=== PATIENT | female | born 1995 ===

== ENCOUNTER 2024-06-03 17:59 | Emergency (ER) | payer BC, SELFPAY ==
[2024-06-03 18:14] VITALS: BP 123/92
--- NOTE | 2024-06-03 18:18 | ED.PDOC.TRB ---
ED Provider Triage
-
Patient seen by provider in Triage?: Seen in Triage
A medical screening examination has been initiated by a qualified medical provider. Based on the assessment performed at this time, it has been determined that an emergent medical condition may exist and the patient has been informed that further
medical evaluation and possible additional diagnostic testing may be needed.
HPI: This is a medical evaluation conducted in person to initiate diagnostic evaluation and provide initial therapeutics. Please see further documentation by the treating clinician.
GENERAL: Alert , in no apparent distress
ENT: No visible abnormalities
LUNGS: No acute respiratory distress
NEUROLOGICAL: Alert and oriented
SKIN: Skin intact. No visible changes.
MUSCULOSKELETAL: Moving extremities normally
PSYCH: Normal and appropriate interaction.
29 y/o F
rlq pain since last night
waxing and waninig
rad to bck
tender RLQ
concern for possible appe; will do labs and ct scan.
tylenol for fever.
[2024-06-03] MEDS: TYLENOL 1000 MG PO (18:26)
[2024-06-03 18:39] LABS: % Basophils 0.4 % (0-2); % Eosinophils 0.1 % (0-6); % Immature Granulocytes 0.5 % (0-0.5); % Lymphocytes 11.1 % (20.5-51.1); % Monocytes 9.3 % (1.7-9.3); % Neutrophils 78.6 % (42.2-75.2); Absolute Basophils 0.1 10^3/uL (0-0.2); Absolute Immature Granulocytes 0.1 10^3/uL (0-0.05); Absolute Monocytes 1.7 10^3/uL (0.1-0.6); Absolute Neutrophils 14.2 10^3/uL (1.4-6.5); Hematocrit 38.3 % (37.0-47.0); Mean Corp Hgb Conc. 36.6 g/dL (33.0-37.0); Mean Corpuscular Hgb 31.7 pg (27.0-31.0); Mean Corpuscular Volume 86.8 fL (81.0-99.0); Mean Platelet Volume 9.9 fL (7.4-10.4); Nucleated Red Blood Cells % 0 %; Platelet Count 278 10^3/uL (130-400); Red Blood Cell Count 4.41 10^6/uL (4.20-5.40); Red Cell Dist. Width 13.3 % (11.5-14.5); White Blood Cell Count 18.1 10^3/uL (4.8-10.8)
[2024-06-03 18:50] LABS: HCG, Serum Qualitative Screen Negative
[2024-06-03 18:52] VITALS: BP 117/88
[2024-06-03 18:54] LABS: ALT (SGPT) 23 U/L (0-35); AST (SGOT) 25 U/L (14-36); Albumin 5.2 g/dl (3.5-5.0); Alkaline Phosphatase 52 U/L (38-126); Blood Urea Nitrogen 7 mg/dl (7-17); Calcium 10.2 mg/dl (8.4-10.2); Carbon Dioxide 24 mmol/L (22-30); Chloride 98 mmol/L (98-107); Estimated Creatinine Clearance 115 ml/min; Glucose 123 mg/dl (70-99); Potassium 4.1 mmol/L (3.5-5.1); Sodium 138 mmol/L (135-145); Total Bilirubin 1.3 mg/dl (0.2-1.3); Total Protein 8.2 g/dl (6.3-8.2); eGFR > 60.00
--- NOTE | 2024-06-03 18:55 | ED.GENMED ---
History of Present Illness
General
Chief Complaint: Abdominal Pain
Time Seen by Provider: 06/03/24 18:38
History of Present Illness
History of Present Illness:
29-year-old female presents to the emergency department for evaluation of right lower quadrant abdominal pain that began abruptly in the middle of the night last night. Pain has been worsening throughout the day and is associated with fever.
Denies any nausea, vomiting, or diarrhea. Has not passed any gas in the past 8 hours. No prior surgeries. She is currently on her menstrual cycle.
Review of Systems
Review of Systems
Allergies reviewed?: Yes
All Other Systems: ROS reviewed and negative except as documented in HPI and ROS
Phy Exam
Physical Exam
Physical Exam:
GEN: Well appearing, NAD, WDWN
HEENT: Oral mucosa moist, no scleral icterus
Cardiac: Tachycardic, regular
Lung: No respiratory distress, no tachypnea, lungs clear
Abdomen: Soft, diffusely tender to all 4 quadrants with no focal regional tenderness, no rigidity
MSK: No gross deformity or injuries
Skin: Good color, no pallor or jaundice, no rashes
Neuro: AO x3, moves all extremities freely
Psych: Calm, cooperative
Course
Orders/Labs/Results
Orders:
Orders
06/03/24 18:16
Acetaminophen [Tylenol] 1,000 mg PO NOW STA
Iohexol [Omnipaque] See Protocol PO NOW STA
Test Result ONCE
06/03/24 18:21
CT Abd/Pel (IV only)-DH only Urgent
Comment:
Reason For Exam: rlq pain fever
06/03/24 18:23
Acetaminophen [Tylenol] 1,000 mg .ROUTE .STK-MED ONE
06/03/24 18:31
Complete Blood Count/With Diff Urgent
Comprehensive Metabolic Panel Urgent
HCG, Serum Qualitative Screen Urgent
Lipase Urgent
06/03/24 18:51
Urinalysis Reflex To Culture Urgent
Date Specimen was Collected: 06/03/24
Time Specimen was Collected: 18:44
Urine Microscopic Reflex Cult Urgent
06/03/24 19:26
0.9% Sodium Chloride 1000 ml [Nss] 1,000 ml IV BOLUS
06/03/24 20:55
Ketorolac [Toradol] 15 mg IV NOW STA
Abnormal Lab Results
06/03/24 06/03/24
18:31 18:51
WBC 18.1 H 10^3/uL
(4.8-10.8)
MCH 31.7 H pg
(27.0-31.0)
Abs Immat Gran (auto) 0.1 H 10^3/uL
(0-0.05)
Absolute Neuts (auto) 14.2 H 10^3/uL
(1.4-6.5)
Absolute Monos (auto) 1.7 H 10^3/uL
(0.1-0.6)
Neutrophils % 78.6 H %
(42.2-75.2)
Lymphocytes % 11.1 L %
(20.5-51.1)
Glucose 123 H mg/dl
(70-99)
Albumin 5.2 H g/dl
(3.5-5.0)
Ur Occult Blood Reflex 2+ A
(Negative)
Urine Bacteria (Reflex) Few A
(Negative)
06/03/24 18:31
06/03/24 18:31
Vital Signs
Initial and Last Documented VS:
Initial Vital Signs
Temp Pulse Resp BP Pulse Ox
100.1 F 124 16 123/92 98
06/03/24 18:14 06/03/24 18:14 06/03/24 18:14 06/03/24 18:14 06/03/24 18:14
Last Documented Vital Signs
Temp Pulse Resp BP Pulse Ox
100.1 F 124 16 107/79 100
06/03/24 18:14 06/03/24 18:14 06/03/24 18:14 06/03/24 19:00 06/03/24 19:00
MDM/Problems Addressed
MDM/Problems Addressed:
Etiology of her pain is unclear. Imaging findings discussed with radiology, no clear evidence of bowel obstruction rather more likely self-limited pathology. She has no vomiting or diarrhea. No e/o appendicitis. Her symptoms did improve with IV
fluids and she was able to tolerate p.o. fluids without difficulty. Recommend clear liquids only for the next 24 hours and close ED follow-up if symptoms worsen she may need repeat imaging with p.o. contrast
*Critical Care Note
Total Time (30-74mins, 75-104mins- exclusive of procedures): Not Applicable
ED Attending Note
-
Portions of this chart may have been created with voice recognition software.� Occasional wrong word or��sound alike� substitutions may have occurred due to the inherent limitations of voice recognition software.
Discharge Plan
Departure
Patient Disposition: Home (Routine Discharge)
Date of Disposition: 06/03/24
Time of Disposition: 22:28
Patient with high blood pressure during this ER visit?: No
Discharge Problem:
Generalized abdominal pain
Instructions: Abdominal Pain
Prescriptions:
New
ondansetron 4 mg tablet,disintegrating
4 mg PO TIDPRN PRN (Reason: nausea/vomiting) Qty: 10 0RF
Referrals:
NONE,* [Family Provider] -
Activity Restrictions/Additional Instructions:
Clear liquids only for the next 24 hours
Return if your symptoms worsen
Interventions
Interventions:
*Risk Screen - Suicide Last Done: 06/03/24 18:14
*General Assessment Last Done: 06/03/24 18:59
*Neglect/Abuse Screening Last Done: 06/03/24 22:39
ED- Fall Risk Assessment Last Done: 06/03/24 18:59
*ED COVID-19 Vaccine History Last Done: 06/03/24 18:59
*Nursing Disposition Last Done: 06/03/24 22:39
HW-Yupnvm-Pzbajrsfwa Assessment Last Done: 06/03/24 18:59
Discharge Date and Time
Discharge Date/Time: 06/03/24 22:45
Print Language: YAKUT
[2024-06-03 18:57] VITALS: BMI 25.7
[2024-06-03 19:00] VITALS: BP 107/79
[2024-06-03 19:07] LABS: Urine Albumin Negative (Neg - Trace); Urine Bilirubin Negative (Negative); Urine Character Clear (Clear); Urine Color Yellow; Urine Glucose Negative (Negative); Urine Ketone Negative (Negative); Urine Leukocyte Negative (Negative); Urine Nitrite Negative (Negative); Urine Occult Blood 2+ (Negative); Urine Urobilinogen Negative (Neg - 1+)
[2024-06-03 19:09] LABS: Lipase 45 U/L (23-300)
[2024-06-03 19:17] LABS: Urine Red Blood Cell 0-2 /HPF (0-2); Urine White Cell 0-2 /HPF (0-5)
[2024-06-03 19:18] LABS: Urine Bacteria Few (Negative)
[2024-06-03] MEDS: NSS 1000 IV (20:02)
[2024-06-03] MEDS: TORADOL 15 MG IV (21:03)
== END 2024-06-03 22:45 | disposition home or self-care (01) ==
LOC: EMR 17:59
PROVIDERS: Physician Assistant; EMERGENCY PHYSICIAN Emergency Medicine
DX: R10.84 Generalized abdominal pain (principal)
CPT/HCPCS: 99285; 96374; 96361; 74177; 80053; 81003; 81015; 83690; 84703; 85025; Q9967

== ENCOUNTER → 2024-06-23 10:48 | Outpatient (REF) | payer BC, SELFPAY ==
[2024-06-23 11:53] LABS: % Basophils 0.8 % (0-2); % Immature Granulocytes 0.3 % (0-0.5); % Lymphocytes 26.3 % (20.5-51.1); % Monocytes 9.9 % (1.7-9.3); % Neutrophils 61.7 % (42.2-75.2); Absolute Basophils 0.1 10^3/uL (0-0.2); Absolute Eosinophils 0.1 10^3/uL (0-0.7); Absolute Lymphocytes 2.3 10^3/uL (1.2-3.4); Absolute Monocytes 0.9 10^3/uL (0.1-0.6); Absolute Neutrophils 5.4 10^3/uL (1.4-6.5); Hematocrit 41.1 % (37.0-47.0); Hemoglobin 14.3 g/dL (12.0-16.0); Mean Corp Hgb Conc. 34.8 g/dL (33.0-37.0); Mean Corpuscular Hgb 30.8 pg (27.0-31.0); Mean Corpuscular Volume 88.4 fL (81.0-99.0); Mean Platelet Volume 10.4 fL (7.4-10.4); Nucleated Red Blood Cells % 0 %; Platelet Count 318 10^3/uL (130-400); Red Blood Cell Count 4.65 10^6/uL (4.20-5.40); Red Cell Dist. Width 13.4 % (11.5-14.5); White Blood Cell Count 8.7 10^3/uL (4.8-10.8)
[2024-06-23 12:33] LABS: ALT (SGPT) 21 U/L (0-35); AST (SGOT) 20 U/L (14-36); Albumin 4.9 g/dl (3.5-5.0); Alkaline Phosphatase 46 U/L (38-126); Blood Urea Nitrogen 13 mg/dl (7-17); Calcium 9.4 mg/dl (8.4-10.2); Carbon Dioxide 26 mmol/L (22-30); Chloride 101 mmol/L (98-107); Glucose 83 mg/dl (70-99); HDL Cholesterol 90 mg/dl; LDL Cholesterol, Calculated 97 mg/dl; Potassium 4.6 mmol/L (3.5-5.1); Sodium 138 mmol/L (135-145); Total Bilirubin 0.7 mg/dl (0.2-1.3); Total Cholesterol 200 mg/dl (50-199); Total Protein 7.5 g/dl (6.3-8.2); Triglyceride 65 mg/dl (10-149); Very Low Density Lipoprotein 13 mg/dl (0-30); eGFR > 60.00
[2024-06-23 12:45] LABS: TSH Reflex To Free T4 2.11 uIU/ml (0.47-4.68)
== END ==
LOC: REG 10:48
PROVIDERS: ATTENDING PHYSICIAN Family Medicine
DX: Z00.00 Encounter for general adult medical examination without abnormal findings (principal)
CPT/HCPCS: 36415; 80053; 80061; 84443; 85025

== ENCOUNTER 2024-10-26 15:07 | Emergency (ER) | payer BC, SELFPAY ==
[2024-10-26 15:13] VITALS: BP 117/73
--- NOTE | 2024-10-26 15:17 | ED.GENMED ---
History of Present Illness
General
Chief Complaint: Abdominal Pain
Source: patient
Exam Limitations: none
Time Seen by Provider: 10/26/24 15:08
Nursing documentation reviewed up to this point in time: agreed with
History of Present Illness
History of Present Illness:
29-year-old female with history of IBS/constipation on Linzess presents to the emergency department for evaluation of abdominal pain. Patient reports onset of symptoms rather suddenly late morning and have been constant since that time. She
reports intense pain across the lower abdomen. Radiates towards the low back. No clear triggering or relieving factors noted. She denies any associated nausea or vomiting. She denies any constipation more than usual; she says she took some
Linzess last night and was able to go to the bathroom. She denies any dysuria, hematuria, change in urinary frequency. She denies any vaginal bleeding; she says that her last menstrual period was a month ago and she is due today. She denies prior
surgical history. She did have a similar episode May attributed to ileus.
Review of Systems
Review of Systems
All Other Systems: ROS reviewed and negative except as documented in HPI and ROS
Constitutional: Denies fever
Respiratory: Denies trouble breathing
Cardiac: Denies chest pain
ABD/GI: Reports abdominal pain; Denies nausea, vomiting or diarrhea
: Denies dysuria, frequency, flank pain or bleeding
Musculoskeletal: Denies neck pain
Neurological: Denies dizzy or headache
Phy Exam
Physical Exam
Physical Exam:
General: Awake, alert, oriented x3; appears uncomfortable
Head: Normocephalic, atraumatic
Eyes: Conjunctiva normal, sclera anicteric
Throat: Airway intact, handling secretions
Neck: Trachea midline
Lungs: Breathing comfortably no distress
Heart: Regular rate
Abd: Soft, non distended, tender to palpation across the lower abdomen with no palpable masses and no peritoneal signs
Back: No CVA tenderness
Neuro: No gross deficit
Scores
Heart Failure Risk
Heart Failure Risk Score: Not Applicable
Heart Score for Chest Pain Patients
STEMI patient?: Not applicable
Withdrawal Assessment of Alcohol
Withdrawal Assessment Completed?: Not applicable
Course
Orders/Labs/Results
Orders:
Orders
10/26/24 15:15
Urinalysis Reflex To Culture Urgent
Date Specimen was Collected: 10/26/24
Time Specimen was Collected: 20:20
Test Result ONCE
10/26/24 15:16
0.9% Sodium Chloride 1000 ml [Nss] 1,000 ml IV BOLUS
Ketorolac [Toradol] 15 mg IV NOW STA
10/26/24 15:26
Complete Blood Count/With Diff Urgent
Comprehensive Metabolic Panel Urgent
HCG, Serum Qualitative Screen Urgent
Lipase Urgent
10/26/24 16:04
CT Abd/pel W Iv And Oral Contr Urgent
Comment:
Reason For Exam: lower abd pain
Iohexol [Omnipaque] See Protocol PO NOW STA
10/26/24 16:05
Iohexol [Omnipaque] 50 ml .ROUTE .STK-MED ONE
10/26/24 16:21
Morphine Sulfate 4 mg .ROUTE .STK-MED ONE
Ondansetron Injectable [Zofran] 4 mg .ROUTE .STK-MED ONE
10/26/24 16:22
Ondansetron Injectable [Zofran] 4 mg IV NOW STA
10/26/24 16:23
Morphine Sulfate 4 mg IV NOW STA
Abnormal Lab Results
10/26/24
15:26
RBC 4.18 L 10^6/uL
(4.20-5.40)
MCH 31.6 H pg
(27.0-31.0)
Absolute Monos (auto) 1.0 H 10^3/uL
(0.1-0.6)
Monocytes % 10.2 H %
(1.7-9.3)
10/26/24 15:26
10/26/24 15:26
Vital Signs
Initial and Last Documented VS:
Initial Vital Signs
Temp Pulse Resp BP Pulse Ox
36.8 C 101 16 117/73 100
10/26/24 15:13 10/26/24 15:13 10/26/24 15:13 10/26/24 15:13 10/26/24 15:13
Last Documented Vital Signs
Temp Pulse Resp BP Pulse Ox
36.8 C 95 16 118/71 100
10/26/24 15:13 10/26/24 19:10 10/26/24 19:10 10/26/24 19:10 10/26/24 19:10
MDM/Problems Addressed
Differential Diagnosis Includes:
Bowel obstruction/ileus, diverticulitis, appendicitis, UTI, nephrolithiasis, ovarian cyst, ovarian torsion, fibroid
MDM/Problems Addressed:
29-year-old female presents for evaluation of lower abdominal pain started this morning and has been constant and intense. She is tachycardic otherwise normal vitals. Physical exam as above. Will place an IV check labs including a CBC CMP,
lipase, hCG. Check urinalysis. Check CT abdomen pelvis. Will treat symptomatically. Monitor closely reassess after the above.
Labs reviewed: CBC and CMP unremarkable. hCG negative. Lipase is normal. CT of the abdomen pelvis shows moderate stool in the colon, mild thickening of the proximal to mid jejunum and duodenum which could be from enteritis; top normal caliber
loops of small bowel with no evidence of bowel obstruction and no intraperitoneal air. She does have complex cyst in the right ovary but no free fluid in the pelvis. On clinical reassessment patient's pain did improve with treatment here although
not completely resolved. I long discussion with patient about findings on CT. We spoke about admission for observation and serial exams and GI consultation but patient says that she already has an appointment scheduled with GI for this Saturday and
she does not wish to stay in hospital; at this point no clear emergent pathology and I do not think will be unreasonable if she is feeling better to go home and follow-up on Saturday with GI. I did however speak to her about strict return
precautions. She feels very comfortable with this plan. Using shared decision making we will discharge.
*Radiology
Radiology exam reviewed: radiology read reviewed
*Pulse Oximetry
Patient hypoxic: no
*Critical Care Note
Total Time (30-74mins, 75-104mins- exclusive of procedures): Not Applicable
Data Reviewed
Review of Other/Old Records Reveals: Radiology Studies
Source: patient and records
Patient Management
Escalation/DeEscalation of care consider admission/obs:
Offered admission�using shared decision making discharged with close follow-up and strict return precaution
ED Attending Note
-
Portions of this chart may have been created with voice recognition software.� Occasional wrong word or��sound alike� substitutions may have occurred due to the inherent limitations of voice recognition software.
Discharge Plan
Departure
Patient Disposition: Home (Routine Discharge)
Date of Disposition: 10/26/24
Time of Disposition: 20:18
Patient with high blood pressure during this ER visit?: No
Discharge Problem:
Abdominal pain
Instructions: Abdominal Pain
Prescriptions:
New
dicyclomine 10 mg capsule
10 mg PO TID Qty: 30 0RF
No Action
ondansetron 4 mg tablet,disintegrating
4 mg PO TIDPRN PRN (Reason: nausea/vomiting) Qty: 10 0RF
Referrals:
Yanet Yuan MD [Family Provider] -
Mary Diego MD [Active] - Keep scheduled appt
Activity Restrictions/Additional Instructions:
Thank you for visiting the Emergency Department at [facility].
1. Please schedule a follow up appointment as directed. Call first thing tomorrow morning to make an appointment.
2. If indicated, please take your medications as instructed and indicated on discharge paperwork.
3. If any of your symptoms do not improve, or persist, or become more severe within 6-12 hours, please return to the emergency department for further care.
4. Please return to the emergency department if you develop a headache, neck pain/stiffness, fever greater than 100.4F, chest pain, shortness of breath, persistent nausea, vomiting, slurred speech, difficulty walking, numbness/tingling, weakness,
signs of infection or any other symptoms that are worrisome to you.
Please call [phone] if you have any questions.
Interventions
Interventions:
*Risk Screen - Suicide Last Done: 10/26/24 15:13
*General Assessment Last Done: 10/26/24 16:34
*Neglect/Abuse Screening Last Done: 10/26/24 15:13
ED- Fall Risk Assessment Last Done: 10/26/24 16:34
*ED COVID-19 Vaccine History Last Done: 10/26/24 16:34
TT-Ffnugl-Ooyksqwmrv Assessment Last Done: 10/26/24 16:34
Discharge Date and Time
Print Language: BRUNEIAN
[2024-10-26] MEDS: TORADOL 15 MG IV (15:23)
[2024-10-26] MEDS: NSS 1000 IV (15:24)
[2024-10-26 15:37] LABS: % Basophils 0.6 % (0-2); % Eosinophils 1.5 % (0-6); % Immature Granulocytes 0.3 % (0-0.5); % Lymphocytes 29.2 % (20.5-51.1); % Monocytes 10.2 % (1.7-9.3); % Neutrophils 58.2 % (42.2-75.2); Absolute Basophils 0.1 10^3/uL (0-0.2); Absolute Eosinophils 0.2 10^3/uL (0-0.7); Absolute Lymphocytes 2.9 10^3/uL (1.2-3.4); Absolute Neutrophils 5.7 10^3/uL (1.4-6.5); Hematocrit 37.2 % (37.0-47.0); Hemoglobin 13.2 g/dL (12.0-16.0); Mean Corp Hgb Conc. 35.5 g/dL (33.0-37.0); Mean Corpuscular Hgb 31.6 pg (27.0-31.0); Nucleated Red Blood Cells % 0 %; Platelet Count 274 10^3/uL (130-400); Red Blood Cell Count 4.18 10^6/uL (4.20-5.40); Red Cell Dist. Width 13.2 % (11.5-14.5); White Blood Cell Count 9.8 10^3/uL (4.8-10.8)
[2024-10-26 15:50] LABS: HCG, Serum Qualitative Screen Negative
[2024-10-26 15:51] LABS: ALT (SGPT) 18 U/L (0-35); AST (SGOT) 19 U/L (14-36); Albumin 4.7 g/dl (3.5-5.0); Alkaline Phosphatase 47 U/L (38-126); Blood Urea Nitrogen 14 mg/dl (7-17); Calcium 9.4 mg/dl (8.4-10.2); Carbon Dioxide 27 mmol/L (22-30); Chloride 102 mmol/L (98-107); Glucose 92 mg/dl (70-99); Lipase 98 U/L (23-300); Potassium 4.3 mmol/L (3.5-5.1); Sodium 140 mmol/L (135-145); Total Bilirubin 0.3 mg/dl (0.2-1.3); Total Protein 7.2 g/dl (6.3-8.2); eGFR > 60.00
[2024-10-26] MEDS: OMNIPAQUE 50 ML PO (16:10)
[2024-10-26] MEDS: ZOFRAN 4 MG IV (16:23)
[2024-10-26] MEDS: MORPHINE SULFATE 4 MG IV (16:23)
[2024-10-26 19:10] VITALS: BP 118/71
--- NOTE | 2024-10-26 19:10 | EDRN ---
Report received introduced myself to patient, aware we are waiting on CT results
[2024-10-26 20:32] LABS: Urine Albumin Negative (Neg - Trace); Urine Bilirubin Negative (Negative); Urine Character Clear (Clear); Urine Color Yellow; Urine Glucose Negative (Negative); Urine Ketone 1+ (Negative); Urine Leukocyte Negative (Negative); Urine Nitrite Negative (Negative); Urine Occult Blood Negative (Negative); Urine Urobilinogen Negative (Neg - 1+)
== END 2024-10-26 20:27 | disposition home or self-care (01) ==
LOC: EMR 15:07
PROVIDERS: EMERGENCY PHYSICIAN Emergency Medicine; FAMILY PHYSICIAN Family Medicine
DX: R10.30 Lower abdominal pain, unspecified (principal)
CPT/HCPCS: 99285; 96374; 96375 ×2; 96361; 74177; 80053; 81003; 83690; 84703; 85025; Q9967

== ENCOUNTER → 2024-10-30 15:19 | Outpatient (REF) | payer BC, SELFPAY ==
[2024-10-30 16:21] LABS: Erythrocyte Sed Rate 13 mm/hour (0-20)
== END ==
LOC: REG 15:19
PROVIDERS: ATTENDING PHYSICIAN Internal Medicine Gastroenterology; FAMILY PHYSICIAN Family Medicine
DX: R10.9 Unspecified abdominal pain (principal)
CPT/HCPCS: 36415; 82784; 83516; 85652; 86140; 86231

== ENCOUNTER 2024-12-04 06:27 | Day surgery (SDC) | payer BC, SELFPAY | END 2024-12-04 15:59 | disposition home or self-care (01) | LOC: GI 06:27 | PROVIDERS: ATTENDING PHYSICIAN Internal Medicine Gastroenterology; FAMILY PHYSICIAN Family Medicine | DX: R10.10 Upper abdominal pain, unspecified (principal); R93.3 Abnormal findings on diagnostic imaging of other parts of digestive tract; K29.50 Unspecified chronic gastritis without bleeding | CPT/HCPCS: 43239; 88305; 88342 ==

== ENCOUNTER → 2024-12-08 16:57 | Outpatient (REF) | payer BC, SELFPAY | LOC: MRI 3T 16:57 | PROVIDERS: ATTENDING PHYSICIAN Internal Medicine Gastroenterology; FAMILY PHYSICIAN Family Medicine | DX: R93.89 Abnormal findings on diagnostic imaging of other specified body structures (principal) | CPT/HCPCS: 72197; 74183; A9575 ==

== ENCOUNTER → 2025-06-04 12:22 | Outpatient (REF) | payer BC, SELFPAY | LOC: RAD 12:22 | PROVIDERS: ATTENDING PHYSICIAN Internal Medicine Gastroenterology | DX: K59.09 Other constipation (principal) | CPT/HCPCS: 74018 ==

== ENCOUNTER → 2025-07-28 15:37 | Outpatient (REF) | payer BC, SELFPAY | LOC: RAD 15:37 | PROVIDERS: ATTENDING PHYSICIAN Obstetrics & Gynecology; FAMILY PHYSICIAN Family Medicine | DX: Z01.818 Encounter for other preprocedural examination (principal); N80.9 Endometriosis, unspecified | CPT/HCPCS: 76830; 76856 ==